=== PATIENT | female | born 1935 | race Caucasian/White ===

== ENCOUNTER 2022-04-07 20:02 | Inpatient (IN) | payer MEDICARE, SELFPAY ==
[2022-04-07] VITALS (16 sets, daily range): BP systolic 124–160; BP diastolic 56–68; PULSE 70–87; RESP 15–20; TEMP 36.4; O2SAT 95–98
--- NOTE | ~2022-04-07 | XR_ITS ---
EXAMINATION: XR chest 1V DATE: 04/07/2022 21:52 INDICATION: Recent pneumonia presenting with 2 days of new onset shortness of breath TECHNIQUE: frontal view of the chest was obtained. COMPARISON: None FINDINGS: Mild opacities at the bilateral lower lung zones. Blunting at the costophrenic angles consistent with small bilateral pleural effusions. No pneumothorax. The cardiomediastinal silhouette is within sam l limits for AP technique. Dual lead pacemaker seen with leads projecting over the expected locations of the right atrium and right ventricle. Tiny circular metallic density likely breast biopsy marker clip projecting over the left breast. IMPRESSION: 1. Opacities in bilateral lower lung zones consistent with small bilateral pleural effusions with ass ociated atelectasis or pneumonia. Reviewed, dictated and finalized at location A. IMPRESSION: 1. Opacities in bilateral lower lung zones consistent with small bilateral pleu ral effusions with associated atelectasis or pneumonia.
--- NOTE | ~2022-04-07 | NM_ITS ---
EXAMINATION: NM ritika stress w perfusion DATE: 04/10/2022 12:58 INDICATION: Chest pain. TECHNIQUE: Rest images were obtained following intravenous administration of 9.0 mCi Tc99m tetrofosmi n (Myoview). The patient was infused intravenously with Lexiscan (regadenoson). Then, 29.4 mCi Tc99m tetrofosmin (Myoview) was administered intravenously, and stress images were obtained. Data was recon structed into short axis and horizontal and vertical long axis SPECT images. Gated SPECT images were also obtained. COMPARISON: None. FINDINGS: There is a small, mild, fixed perfusion defect involving apical to mid inferior wall of lef t ventricle, consistent with infarct. No reversible component to suggest ischemia. There is no segme ntal wall motion abnormality. Left ventricular ejection fraction measures >70%. IMPRESSION: 1. Small area of mild infarct involving apical to mid inferior wall of left ventricle. Increased acti vity below the diaphragm decreases sensitivity and specificity in the inferior wall. 2. Normal left ventricular ejection fraction measuring > 70%. Reviewed, dictated and finalized at location B. IMPRESSION: 1. Small area of mild infarct involving apical to mid inferior wall of left chidi tricle. Increased activity below the diaphragm decreases sensitivity and specif icity in the inferior wall. 2. Normal left ventricular ejection fraction measuring > 70%.
--- NOTE | 2022-04-07 20:27 | ED.SOB ---
HPI - SOB/Dyspnea General Chief Complaint: Shortness of Breath/Dyspnea Stated Complaint: sob x 2 days Time Seen by Provider: 04/07/22 20:14 History of Present Illness HPI Narrative: Patient is an 86-year-old female with a history of rheumatoid arthritis, hypertension, hyperlipidemia, CAD, bradycardia status post pacemaker presenting with shortness of breath. Patient states that she had a pacemaker placed approximately 8 days ago in spring. She has since come to stay with her daughter. Today they were out on a walk when she developed chest heaviness and shortness of breath. They called the patient's tele-nurse who recommended they come to the ER. Patient was also recently treated for pneumonia. She finished her course of doxycycline yesterday morning. Currently, patient states that she feels fine. Denies recent fevers, headache, numbness or weakness, lightheadedness, palpitations, abdominal pain, nausea or vomiting, diarrhea, dysuria. Patient does report mild bilateral lower extremity swelling. Related Data Home Medications Medication Instructions Recorded Confirmed Adults Multivitamin 1 tab-cap PO DAILY 04/08/22 04/08/22 amlodipine 5 mg tablet 10 mg PO DAILY 04/08/22 04/08/22 aspirin 81 mg tablet,delayed 81 mg PO DAILY 04/08/22 04/08/22 release atorvastatin 20 mg tablet 20 mg PO HS 04/08/22 04/08/22 furosemide 20 mg tablet 20 mg PO DAILY 04/08/22 04/08/22 gabapentin 300 mg capsule 300 mg PO BID 04/08/22 04/08/22 Allergies Allergy/AdvReac Type Severity Reaction Status Date / Time acetaminophen [From Vicodin] Allergy Confusion Verified 04/07/22 23:43 celecoxib [From Celebrex] Allergy Swelling Verified 04/07/22 23:43 of Lip/Tongue/Throat hydrocodone [From Vicodin] Allergy Confusion Verified 04/07/22 23:43 Sulfa (Sulfonamide Allergy Rash Verified 04/07/22 23:43 Antibiotics) tramadol Allergy Confusion Verified 04/07/22 23:43 Review of Systems Review of Systems: All systems reviewed & are unremarkable except as noted in HPI and below PMFSH Past Medical History Medical History (Updated 04/08/22 @ 20:44 by Trang Desai MD) CAD (coronary artery disease) CHF (congestive heart failure) Essential hypertension Hyperlipidemia Peripheral neuropathy Rheumatoid arthritis Third degree heart block (~03/2022) TIA (transient ischemic attack) (~2006) Surgical History Surgical History (Updated 04/08/22 @ 07:48 by Dana Garibay DO) Artificial cardiac pacemaker (~03/2022) History of bilateral knee replacement History of exploratory laparotomy To evaluate causes for infertility with 3 mobilization of the patient's fallopian tubes History of tonsillectomy and adenoidectomy S/P trigger finger release Multiple fingers on bilateral hands Status post cataract extraction of both eyes with insertion of intraocular lens Status post open reduction with internal fixation of fracture Left hip fracture Family History Family History (Updated 04/08/22 @ 06:14 by Prema Morrison RN) Mother Parkinson disease Congestive heart failure Breast cancer Father Hypertension Sibling Arthritis Social History Social History (Updated 04/08/22 @ 07:44 by Dana Garibay DO) Social History: She has been twice her 2nd in 2013. She lives in an independent living facility in [facility]. She smoked socially for about 15 years but quit smoking around age 39. She denies any significant alcohol or illicit substance use. She was mostly a homemaker. She has 1 biological daughter who is still living. Her adopted daughter at age 48. Code status: Full code Surrogate decision maker: Daughter Smoking status: Never smoker Alcohol intake: never Substance use: never Spiritual care concerns: No Exam Narrative: GENERAL: Well-appearing, well-nourished, and in no acute distress. HEAD: Normocephalic, atraumatic. EYES: PERRLA and EOMI. ENT: Nares clear, no rhino
--- NOTE | 2022-04-07 20:47 | ECG_ITS ---
Measurements Intervals [place] Rate: 71 P: NV: 0 QRS: -79 QRSD: 159 T: 63 QT: 429 QTc: 469 Interpretive Statements ELECTRONIC VENTRICULAR PACEMAKER NO FURTHER INTERPRETATION POSSIBLE NO PREVIOUS ECG AVAILABLE FOR COMPARISON Electronically Signed On 04-08-2022 15:39:43 CDT by Dileep Li M.D.
[2022-04-07 21:08] LABS: Basophils Absolute Auto 0.1 K/mm3 (0.0-0.1); Basophils Percent Auto 0.7 % (0.2-1.2); Eosinophils Absolute Auto 0.2 K/mm3 (0-0.3); Eosinophils Percent Auto 2.4 % (0-4.4); Hematocrit 37.6 % (37.0-47.0); Hemoglobin 12.2 g/dL (12.0-15.0); Immature Granulocyte Absolute 0.03 K/mm3 (0.00-0.031); Immature Granulocyte Percent A 0.4 % (0-0.5); Lymphocytes Absolute Auto 1.97 K/mm3 (0.9-3.2); Mean Corpuscular HGB Conc 32.4 g/dl (32-36); Mean Corpuscular Hemoglobin 29.3 pg (26-34); Mean Corpuscular Volume 90.2 fl (80-100); Mean Platelet Volume 9.1 fl (7.4-10.4); Monocytes Percent Auto 12.7 % (2.6-8.5); Neutrophils Absolute Auto 4.4 K/mm3 (1.3-6.7); Neutrophils Percent Auto 57.8 % (45.5-73.1); Platelet Count Result 220 k/mm3 (150-375); Red Blood Count 4.17 M/mm3 (4.2-5.4); Red Cell Distribution Width 13.7 % (11.5-14.5); White Blood Count 7.6 K/mm3 (4.5-10.0)
[2022-04-07 21:18] LABS: INR 1.1; Partial Thromboplastin Time 32.3 SECONDS (22.3-36.8); Prothrombin Time 13.7 Seconds (11.1-14.7)
[2022-04-07 21:19] LABS: Alanine Aminotransferase 33 U/L (6-35); Albumin Level 4.2 g/dL (3.5-5.1); Alkaline Phosphatase 92 U/L (38-126); Anion Gap 8 mmol/L (8-16); Aspartate Amino Transferase 52 U/L (14-36); Bilirubin,Total 0.4 mg/dL (0.2-1.3); Blood Urea Nitrogen 29 mg/dL (7-17); Calcium 8.9 mg/dL (8.4-10.2); Carbon Dioxide 29 mmol/L (22-30); Chloride 100 mmol/L (98-107); Estimated CRCL calculation 44 ml/min; Estimated Glomerular Filt Rate > 60; Glucose 112 mg/dL (65-110); Potassium 4.1 mmol/L (3.4-5.0); Sodium 137 mmol/L (137-145)
[2022-04-07 21:31] LABS: NT Pro B Type Natriuretic Pept 1640 pg/mL (5-100); Troponin I 0.022 ng/mL (0.000-0.034)
[2022-04-07 22:20] LABS: Add Urine Microscopic? YES; Appearance Urine Cloudy (Clear); Bilirubin Urine Negative (Negative); Blood Urine 1+ (Negative); Color Urine Yellow (Yellow); Glucose Urine UA Negative (Negative); Ketones Urine Negative (Negative); Leukocyte Esterase Ur Trace LEU/UL (Negative); Nitrate Urine Negative (Negative); Protein Urine Negative (Negative); Specific Grav Ur 1.018 (1.001-1.035); Squamous Epithelial Cell Urine Few /hpf (Few); Urobilinogen Urine Negative mg/dL (<2.0)
[2022-04-07] MEDS: FUROSEMIDE INJ 40 MG/4 ML VIAL 20 MG IV PUSH (22:59)
[2022-04-07] MEDS: CEPHALEXIN 500 MG CAPSULE PO (23:00)
[2022-04-08] VITALS (11 sets, daily range): BP systolic 134–149; BP diastolic 50–56; PULSE 67–81; RESP 19–20; TEMP 36.1–36.6; O2SAT 93–96; BMI 25.7
[2022-04-08 00:36] LABS: Troponin I 0.023 ng/mL (0.000-0.034)
[2022-04-08 00:52] LABS: Troponin I 0.026 ng/mL (0.000-0.034)
--- NOTE | 2022-04-08 01:08 | ADMGEN ---
This patient, Abimbola Blankenship, was admitted to [facility] Surg Room 316-01. Patient/family oriented to hospital policies and general routines including ID bracelet, bed and alarms, visiting hours, pain management, procedures, bathroom and other care routines, personal items, smoking policy, room service/diet, and visiting hours. Information on how to activate the Rapid Response Team has been discussed. Patient/Family are encouraged to report perceived risks to care and to ask questions if they do not understand what they are told or what they should do.
--- NOTE | 2022-04-08 01:22 | PM.IMHP ---
H&P: HPI History of Present Illness Date/Time: 04/08/22 01:22 Chief Complaint: Shortness of breath and chest tightness Narrative: 86-year-old female with past medical history of CHF and recent pacemaker placement due to third-degree heart block who presented to the ER from her daughter's home due to shortness of breath and chest tightness with exertion. The patient was hospitalized about a week ago for third-degree heart block at [facility]. She had a pacemaker placed. The patient reports she was treated for pneumonia, UTI, lower extremity edema as well. She lives in independent living in [facility]. Her daughter brought her down here so that she could have assistance trying to get out of bed since she was only able to use 1 arm. She has her left arm in a sling due to pacemaker placement. She reports that she was feeling well and was able to walk fiber 6 blocks. She reports that he knows still a bit increased shortness of breath day before yesterday but then yesterday when she presented to the ER she was only able to walk about a 3rd of what she had been able to walk the previous days. In fact she felt so short of breath that her daughter's had to go get the car to drive her back to the home after 1 block. She reported that she does feel more short of breath and she had a central heaviness over chest. She has not been weighing herself. She denies any fevers or chills. She has been having some lower extremity swelling. She reports that the swelling in her feet is chronic and she relates it to her idiopathic neuropathy. She has chronic joint pain from rheumatoid arthritis. She denies any palpitations. She ambulates with a walker. She has had increased urinary frequency since she was started on Lasix during her last hospitalization. Review of Systems Review of Systems: 12 systems were reviewed with pertinent positives and negatives per HPI. Except as documented in the HPI, all other systems were reviewed and are negative. [facility] Past Medical History Medical History (Updated 04/08/22 @ 07:54 by Dana Garibay DO) CHF (congestive heart failure) Essential hypertension Hyperlipidemia Peripheral neuropathy Rheumatoid arthritis Third degree heart block (~03/2022) TIA (transient ischemic attack) (~2006) Surgical History Surgical History (Updated 04/08/22 @ 07:48 by Dana J. Hopen, DO) Artificial cardiac pacemaker (~03/2022) History of bilateral knee replacement History of exploratory laparotomy To evaluate causes for infertility with 3 mobilization of the patient's fallopian tubes History of tonsillectomy and adenoidectomy S/P trigger finger release Multiple fingers on bilateral hands Status post cataract extraction of both eyes with insertion of intraocular lens Status post open reduction with internal fixation of fracture Left hip fracture Family History Family History (Updated 04/08/22 @ 06:14 by Prema Morrison RN) Mother Parkinson disease Congestive heart failure Breast cancer Father Hypertension Sibling Arthritis Social History Social History (Updated 04/08/22 @ 07:44 by Dana Garibay DO) Social History: She has been twice her 2nd in 2013. She lives in an independent living facility in [facility]. She smoked socially for about 15 years but quit smoking around age 39. She denies any significant alcohol or illicit substance use. She was mostly a homemaker. She has 1 biological daughter who is still living. Her adopted daughter at age 48. Code status: Full code Surrogate decision maker: Daughter Smoking status: Never smoker Alcohol intake: never Substance use: never Spiritual care concerns: No Meds Home Medications and Allergies Home Medications Medication Instructions Recorded Confirmed Type Adults Multivitamin 1 tab-cap PO DAILY 04/08/22 04/08/22 History amlodipine 5 mg tablet 10 mg PO KEO
[2022-04-08 03:53] LABS: Troponin I 0.027 ng/mL (0.000-0.034)
[2022-04-08 07:59] LABS: Anion Gap 7 mmol/L (8-16); Blood Urea Nitrogen 23 mg/dL (7-17); Calcium 8.6 mg/dL (8.4-10.2); Carbon Dioxide 30 mmol/L (22-30); Chloride 101 mmol/L (98-107); Estimated CRCL calculation 49 ml/min; Estimated Glomerular Filt Rate > 60; Glucose 91 mg/dL (65-110); Potassium 3.4 mmol/L (3.4-5.0); Sodium 138 mmol/L (137-145)
[2022-04-08] MEDS: MULTIVITAMINS THERAPEUTIC TAB (*BKC) 1 TABLET PO (08:08)
[2022-04-08] MEDS: GABAPENTIN 300 MG CAPSULE PO ×2 (08:08→21:12)
[2022-04-08] MEDS: amLODIPine BESYLATE 5 MG TABLET 10 MG PO (08:08)
[2022-04-08] MEDS: ASPIRIN 81 MG ENTERIC TABLET PO (08:08)
[2022-04-08] MEDS: FUROSEMIDE INJ 40 MG/4 ML VIAL IV PUSH ×2 (08:09→21:12)
--- NOTE | 2022-04-08 14:30 | PM.IMPN ---
Progress Note: A&P Assessment and Plan (1) CHF exacerbation: Qualifiers: Heart failure type: unspecified Qualified Code(s): I50.9 - Heart failure, unspecified Code(s): I50.9 - Heart failure, unspecified Status: Acute Assessment and Plan: Patient presents with increasing SOB, leg edema and chest heaviness. CXR showing bilateral pleural effusions and possibly atelectasis. BNF 1640. Patient with acute on chronic CHF, probably diastolic. Echo 03/29/22 showing EF 76% with normal diastolic function. Patient received Lasix in the ER and continued on Lasix 40mg IV Q12h. Symptomatically better. Walking in the halls. Continue strict I&O's and daily weights. CHF teaching. Continue diuresis today and probably change to oral tomorrow. (2) Chest pain: Code(s): R07.9 - Chest pain, unspecified Status: Acute Assessment and Plan: Patient has known CAD with 50% LAD stenosis per family. She has developed CHB requiring PM placement and now with chest heaviness and CHF exacerbation. Consider underlying ischemia as etiology of her recurrent symptoms. Troponin normal x 4. EKG unhelpful with paced rhythm. Cards consult. Continue ASA and Lipitor. (3) CAD (coronary artery disease): Code(s): I25.10 - Atherosclerotic heart disease of [place] coronary artery without angina pectoris Status: Acute Assessment and Plan: As above (4) Abnormal urinalysis: Code(s): R82.90 - Unspecified abnormal findings in urine Status: Acute Assessment and Plan: UA noted. The patient is not having any urinary symptoms beyond increased frequency associated with Lasix. The patient was started on Keflex in the ER but stopped by admitting provider. Will monitor urine culture but continue to hold abx. (5) Rheumatoid arthritis: Code(s): M06.9 - Rheumatoid arthritis, unspecified Status: Acute Assessment and Plan: RF negative RA. She was on Embrel at the prior hospitalization. Will re-verify home meds. (6) Essential hypertension: Code(s): I10 - Essential (primary) hypertension Status: Acute Assessment and Plan: Patient's blood pressure was reviewed on 04/08 Blood pressure has mildly elevated on admission but has been well controlled since. Will continue current medications. (7) Third degree heart block: Onset Date: ~03/2022 Code(s): I44.2 - Atrioventricular block, complete Status: Acute Assessment and Plan: Patient presented to an outside hospital with fatigue and found to complete heart block. She underwent pacemaker placement on 03/30/2022. She had a [employer] Essentio dual chamber PM DDD pacing with lower rate set at 70 and upper rate of 120. She tolerated the procedure well. Cardiology consulted. Will interrogate pacemaker. Plan DVT prophylaxis - SCDs Subjective Date/time seen: 04/08/22 14:30 Interval history: 86yo female with RA, CAD, HTN, CHF and recent CHB s/p PM placement 03/30/22 here for SOB and CP. Patient was recently in [facility] for CHB s/p PM placement, UTI and PNA. She was discharged with Lasix 20mg daily and has been compliant with this. She is in this area recuperating with family. She began to have increasing SOB, increasing leg edema and ultimately chest heaviness. She has a known 50% LAD (' maker') many years ago and there are plans for stress test next month. She feels beter today. No furthre chest pain. Good UOP with the Lasix. Exam Narrative: AF 97.6 134/56 73 20 96% RA Gen - NARD lying semi-recumbent in bed Chest - decreased BS with few faint crackles in the bases. nml RR. Left upper chest incision is well approximated without erythema or drainage CV - RRR with frequent extra beats. Tele showing mostly paced rhythm Abd - Soft, NT/ND, Positive BS Ext - trace-1+ pedal edema Neuro - Alert and oriented. Nonfocal exam. [place] [employer]. Psych - Nml mood and
[2022-04-08] MEDS: ATORVASTATIN 20 MG TABLET PO (21:12)
[2022-04-09] VITALS (9 sets, daily range): BP systolic 133–145; BP diastolic 55–65; PULSE 71–80; RESP 17–24; TEMP 36.1–36.9; O2SAT 94–97
--- NOTE | 2022-04-09 | ECHO_ITS ---
Patient Info Name: Abimbola Blankenship Age: 86 years : 1935 Gender: Female Ht: 68 in Wt: 158 lbs BSA: 1.86 m2 HR: 82 bpm BP: 133 / 85 mmHg Heart Rhythm: Sinus Rhythm Exam Date: 04/09/2022 11:44 AM Exam Location: [facility] Pulmonary Patient Status: Inpatient Admit Date: 04/09/2022 Staff Ordering Physician: Mor Hoffman MD Spring Inspector: Emiliano Beyer, QUEENIE, RT Attending Provider: Dana Garibay DO Referring Physician: Yasmin FAROOQ; Exam Type: CA echo doppler color flow Study Info Indications R06.02 - Shortness of breath Complete two-dimensional, color flow and Doppler transthoracic echocardiogram is performed. Strain analysis performed. Summary 1. Complete two-dimensional, color flow and Doppler transthoracic echocardiogram is performed. 2. Left ventricular chamber dimension is normal. 3. Left ventricular systolic function is normal, estimated at 55-60%. 4. Right ventricular chamber dimension is normal. 5. Linear artifact in right ventricle suggestive of catheter(s), pacemaker lead(s), or ICD lead(s). 6. Left atrial chamber dimension is moderately enlarged. 7. There is mild aortic valve sclerosis. 8. There is trace mitral valve regurgitation. Left Ventricle Left ventricular chamber dimension is normal. Left ventricular systolic function is normal, estimated at 55-60%. The left ventricular diastolic function is grade I diastolic dysfunction. Right Ventricle Right ventricular chamber dimension is normal. Linear artifact in right ventricle suggestive of catheter(s), pacemaker lead(s), or ICD lead(s). Left Atria Left atrial chamber dimension is moderately enlarged. Right Atria Right atrial chamber dimension is normal. Aortic Valve The aortic valve is trileaflet. There is mild aortic valve sclerosis. Pulmonic Valve The pulmonic valve is normal. Mitral Valve The mitral valve has normal leaflets. There is trace mitral valve regurgitation. The mitral valve annulus is moderately calcified. Tricuspid Valve The tricuspid valve leaflets are normal. There is mild tricuspid valve regurgitation. Pericardium/Pleural The pericardium appears normal. Aorta The aortic root size at the sinus of Valsalva is normal. Left Ventricular Outflow Tract Name Value Normal LVOT 2D LVOT Diameter 2.0 cm LVOT Doppler LVOT Peak Gradient 2 mmHg LVOT Mean Gradient 1 mmHg LVOT VTI 13 cm LVOT VTI/AV VTI Ratio 0.7 LVOT Stroke Volume 39 ml LVOT CO 2.7 l/min LVOT CI 1.5 l/min/m2 Tricuspid Valve Name Value Normal TV Regurgitation Doppler TR Peak Velocity 305 cm/s TR Peak Gradient 37 mmHg
[2022-04-09 06:58] LABS: Alanine Aminotransferase 28 U/L (6-35); Albumin Level 3.9 g/dL (3.5-5.1); Alkaline Phosphatase 78 U/L (38-126); Anion Gap 11 mmol/L (8-16); Aspartate Amino Transferase 41 U/L (14-36); Bilirubin,Total 0.6 mg/dL (0.2-1.3); Blood Urea Nitrogen 22 mg/dL (7-17); Calcium 8.4 mg/dL (8.4-10.2); Carbon Dioxide 32 mmol/L (22-30); Chloride 96 mmol/L (98-107); Estimated CRCL calculation 39 ml/min; Estimated Glomerular Filt Rate 59; Glucose 92 mg/dL (65-110); Potassium 3.2 mmol/L (3.4-5.0); Sodium 139 mmol/L (137-145)
[2022-04-09] MEDS: POTASSIUM CHLORIDE 20 MEQ TABLET 40 MEQ PO (08:58)
[2022-04-09] MEDS: GABAPENTIN 300 MG CAPSULE PO ×2 (08:58→21:44)
[2022-04-09] MEDS: FUROSEMIDE INJ 40 MG/4 ML VIAL IV PUSH (08:58)
[2022-04-09] MEDS: MULTIVITAMINS THERAPEUTIC TAB (*BKC) 1 TABLET PO (08:58)
[2022-04-09] MEDS: ASPIRIN 81 MG ENTERIC TABLET PO (08:58)
[2022-04-09] MEDS: amLODIPine BESYLATE 5 MG TABLET 10 MG PO (08:58)
--- NOTE | 2022-04-09 09:11 | PM.CNCAR ---
Assessment and Plan Assessment and plan (1) Cardiac pacemaker in situ: Code(s): Z95.0 - Presence of cardiac pacemaker Status: Acute Assessment and Plan: Pacemaker site appears to be and dry and intact. Will have device check performed here in the hospital (2) Essential hypertension: Code(s): I10 - Essential (primary) hypertension Status: Acute (3) CAD (coronary artery disease): Code(s): I25.10 - Atherosclerotic heart disease of [place] coronary artery without angina pectoris Status: Acute Assessment and Plan: Nonobstructive disease noted in 2016. Recent episode of chest pain could be anginal or simply related volume overload (4) Chest pain: Code(s): R07.9 - Chest pain, unspecified Status: Acute Assessment and Plan: Troponins are negative but will keep NPO after midnight for Lexiscan myocardial perfusion study tomorrow. (5) CHF exacerbation: Code(s): I50.9 - Heart failure, unspecified Status: Acute Assessment and Plan: Probably acute and diastolic in etiology. Will check a 2D echocardiogram with Doppler especially given recent pacemaker implantation. Will discontinue her IV Lasix at this point start her on oral furosemide 40 mg p.o. daily. KCL 40 mEq p.o. x1 History of Present Illness History of Present Illness Consult date/time: 04/09/22 09:11 Requesting physician: Uche Sam MD Consult reason: congestive heart failure Reason For Visit: CHF Narrative: Date of service 04/09/2022 Reason consultation: CHF, recent pacemaker Requesting physician: Dr. Sam History: Patient is an 86-year-old female who does see cardiology in [place] as her cardiac care performed by Dr. Ventura. She did have a cardiac catheterization 5 or 6 years ago and was told she had a 50-60% stenosis in ?the maker ?. She has been treated medically. She was noted to have an elevated heart rate as well as a low heart rate for her intermittently noted earlier this month. This resulted in follow-up with Dr. Ventura. Echocardiogram was performed as well as a monitor worn. Due to some bradycardia and what was noted to be complete heart block, she was admitted to the hospital in [place] and underwent a permanent pacemaker implantation on 03/30/2022. She was discharged on 04/01/2022. She has been recently staying with her daughter as her pacemaker site heals and due to standard post ppm limitations. She had been feeling okay up until 3 days ago. She did have some orthopnea on April 05. That on April 06, she was doing her typical walk and felt very short of breath and and experienced some chest heaviness. This was of relatively sudden onset. She walks less than half a block and had to stop. Chest pain was located in the anterior aspect her chest and did not radiate. Her symptoms improved with rest. She came to the hospital where she was started on IV Lasix. Her symptoms have improved in her lower extremity edema has also gotten better. She had been noticing some increased lower extremity swelling recently also. She denies any paroxysmal nocturnal dyspnea, syncope, presyncope, palpitations. Review of Systems Review of Systems: All systems reviewed & are unremarkable except as noted in HPI and below Constitutional: Constitutional: Denies body ache(s) Eyes: Eyes: Denies blurry vision ENT: Comments: Hard of hearing Cardiovascular: Cardiovascular: Reports chest pain and Reports leg edema Respiratory: Respiratory: Reports dyspnea Gastrointestinal: Gastrointestinal: Denies abdominal pain Genitourinary: Genitourinary: Denies hematuria Musculoskeletal: Musculoskeletal: Denies back pain Integumentary/Breasts: Skin/Breast: Denies dry skin Neurologic: Denies headache(s) Psychiatric: Psychiatric: Denies anxiety and Denies behavioral changes Endocrine: Endocrine: Denies excessive sweating Hematologic/Lymphatic: Hematologic/Ly
--- NOTE | 2022-04-09 13:52 | PM.IMPN ---
Progress Note: A&P Assessment and Plan (1) CHF exacerbation: Code(s): I50.9 - Heart failure, unspecified Status: Acute Assessment and Plan: Patient presents with increasing SOB, leg edema and chest heaviness. CXR showing bilateral pleural effusions and possibly atelectasis. BNF 1640. Patient with acute on chronic diastolic CHF. Echo 03/29/22 showing EF 76% with normal diastolic function. Patient received Lasix in the ER and continued on Lasix 40mg IV Q12h. Symptomatically better. Changed to oral Lasix now. Sx resolved (2) Chest pain: Code(s): R07.9 - Chest pain, unspecified Status: Acute Assessment and Plan: Patient has known CAD with 50% LAD stenosis per family. She has developed CHB requiring PM placement and now with chest heaviness and CHF exacerbation. Chest pain could be related to CHF exacerbation but consider underlying ischemia as etiology of her recurrent symptoms. Troponin normal x 4. EKG unhelpful with paced rhythm. Cards consult. Continue ASA and Lipitor. Stress test planned. (3) Atrial fibrillation: Code(s): I48.91 - Unspecified atrial fibrillation Status: Acute Assessment and Plan: Informed by family that the patient has AFib. Need to verify with PM interrogation. Cards notfied. (4) CAD (coronary artery disease): Code(s): I25.10 - Atherosclerotic heart disease of [place] coronary artery without angina pectoris Status: Acute Assessment and Plan: As above (5) Rheumatoid arthritis: Code(s): M06.9 - Rheumatoid arthritis, unspecified Status: Acute Assessment and Plan: RF negative RA. She was on Embrel at the prior hospitalization. Will re-verify home meds. (6) Essential hypertension: Code(s): I10 - Essential (primary) hypertension Status: Acute Assessment and Plan: Patient's blood pressure was reviewed on 04/09 Blood pressure was mildly elevated on admission but has been well controlled since. Will continue current medications. (7) Third degree heart block: Onset Date: ~03/2022 Code(s): I44.2 - Atrioventricular block, complete Status: Acute Assessment and Plan: Patient presented to an outside hospital with fatigue and found to complete heart block. She underwent pacemaker placement on 03/30/2022. She had a [employer]ent[employer] dual chamber PM DDD pacing with lower rate set at 70 and upper rate of 120. She tolerated the procedure well. Cardiology following (8) Cardiac pacemaker in situ: Code(s): Z95.0 - Presence of cardiac pacemaker Status: Acute Assessment and Plan: As above (9) Abnormal urinalysis: Code(s): R82.90 - Unspecified abnormal findings in urine Status: Acute Assessment and Plan: UA noted. The patient is not having any urinary symptoms beyond increased frequency associated with Lasix. The patient was started on Keflex in the ER but stopped by admitting provider. UCx negative. UTI ruled out Plan DVT prophylaxis - SCDs Subjective Date/time seen: 04/09/22 13:52 Interval history: 86yo female with RA, CAD, HTN, CHF and recent CHB s/p PM placement 03/30/22 here for SOB and CP. Feels well today. No chest pain. Shortness of breath is much improved. She is able to take a deeper breath. No nausea or vomiting. patient spoke with grape cutter from [place] stated that patient is having atrial fibrillation. Daughter relays this information that grape cutter recommended Malka. Exam Narrative: AF 97.3 133/55 72 18 95% RA Gen - NARD lying semi-recumbent in bed Chest - Decreased breath sounds in right base with a few left basilar crackles otherwise clear. Normal respiratory rate. CV - RRR with occasional extra beats. Tele showing mostly paced rhythm with PVCs Abd - Soft, NT/ND, Positive BS Ext - no pedal edema Psych - Nml mood and affect Skin - Warm and dry Ob
[2022-04-09] MEDS: DOCUSATE SODIUM 100 MG CAPSULE PO (18:33)
[2022-04-09] MEDS: ATORVASTATIN 20 MG TABLET PO (21:44)
[2022-04-10] VITALS (7 sets, daily range): BP systolic 131–137; BP diastolic 56–60; PULSE 74–96; RESP 16–18; TEMP 36.3–36.6; O2SAT 94–98
[2022-04-10 06:34] LABS: Anion Gap 6 mmol/L (8-16); Blood Urea Nitrogen 22 mg/dL (7-17); Calcium 7.9 mg/dL (8.4-10.2); Carbon Dioxide 31 mmol/L (22-30); Chloride 101 mmol/L (98-107); Estimated CRCL calculation 49 ml/min; Estimated Glomerular Filt Rate > 60; Glucose 87 mg/dL (65-110); Magnesium 2.2 mg/dL (1.6-2.3); Potassium 3.6 mmol/L (3.4-5.0); Sodium 138 mmol/L (137-145)
--- NOTE | 2022-04-10 09:12 | EST_ITS ---
Patient Info Name: Abimbola Blankenship Age: 86 years : 1935 Gender: Female Ht: 68 in Wt: 158 lbs BSA: 1.86 m2 Exam Date: 04/10/2022 11:59 AM Exam Location: [facility] Stress Patient Status: Inpatient Admit Date: 04/09/2022 Staff Ordering Physician: Mor Hoffman MD Attending Provider: Dana Garibay DO Exercise Technologist: Frieda Blanco RDCS Exercise Physician: Yani Ortiz NP Exam Type: CA stress ritika w NM Study Info Indications R07.9 - Chest pain, unspecified A regadenoson stress test was performed. Summary 1. Please correlate with nuclear medicine images, reported separately. 2. No abnormal ST/T wave changes with exercise. 3. Non-diagnostic ECG due to electronic pacing. Protocol: Lexiscan Stress ECG Details Stage: REST Duration (min): 2 min : 22 sec HR (bpm): 98 SBP (mmHg): 165 DBP (mmHg): 69 Stage: REST Duration (min): 5 min : 10 sec HR (bpm): 97 SBP (mmHg): 165 DBP (mmHg): 69 Stage: STAGE 1 Duration (min): 1 min : 0 sec HR (bpm): 112 SBP (mmHg): 165 DBP (mmHg): 69 Stage: RECOVERY Duration (min): 1 min : 0 sec HR (bpm): 110 SBP (mmHg): 156 DBP (mmHg): 57 Stage: RECOVERY Duration (min): 2 min : 0 sec HR (bpm): 110 SBP (mmHg): 156 DBP (mmHg): 57 Stage: RECOVERY Duration (min): 3 min : 0 sec HR (bpm): 99 SBP (mmHg): 147 DBP (mmHg): 57 Stage: RECOVERY Duration (min): 3 min : 11 sec HR (bpm): 102 SBP (mmHg): 147 DBP (mmHg): 57 Rest HR: 97 bpm Peak HR: 114 bpm Rest Sys BP: 165 mmHg Peak Sys BP: 156 mmHg Max Pred HR: 133 bpm % Max Pred HR: 86 % Target HR: 113 bpm Max RPP: 17,784 bpm*mmHg Target HR Summary: Hemodynamic response to exercise was normal BP Response: Normal blood pressure response Termination Reason: Completed protocol Cardiac Symptoms: None Total Time: 1 min : 0 sec Rest Wong BP: 69 mmHg Peak Wong BP: 57 mmHg Total Dose: 0.4 mg Resting ECG Normal sinus rhythm. Ventricular pacing. Stress ECG No abnormal ST/T wave changes with exercise. Non-diagnostic ECG due to electronic pacing. Arrhythmias None. Report Signatures
[2022-04-10] MEDS: ASPIRIN 81 MG ENTERIC TABLET PO (11:05)
[2022-04-10] MEDS: amLODIPine BESYLATE 5 MG TABLET 10 MG PO (11:05)
[2022-04-10] MEDS: MULTIVITAMINS THERAPEUTIC TAB (*BKC) 1 TABLET PO (11:06)
[2022-04-10] MEDS: FUROSEMIDE 40 MG TABLET PO (11:06)
[2022-04-10] MEDS: GABAPENTIN 300 MG CAPSULE PO (11:06)
--- NOTE | 2022-04-10 12:13 | PM.PNCARD ---
Progress Note: A&P Assessment and Plan (1) Cardiac pacemaker in situ: Code(s): Z95.0 - Presence of cardiac pacemaker Status: Acute Assessment and Plan: Pacemaker site appears to be and dry and intact. Contacted [employer] for pacemaker interrogation. (2) Essential hypertension: Code(s): I10 - Essential (primary) hypertension Status: Acute Assessment and Plan: At goal. (3) CAD (coronary artery disease): Code(s): I25.10 - Atherosclerotic heart disease of [place] coronary artery without angina pectoris Status: Acute Assessment and Plan: Nonobstructive disease noted in 2016. Recent episode of chest pain could be anginal or simply related volume overload. No ischemia noted on lexiscan performed today. Continue ASA, statin. (4) Chest pain: Code(s): R07.9 - Chest pain, unspecified Status: Acute Assessment and Plan: Underwent lexiscan today - did not show any reversible ischemia. EF 70%. (5) CHF exacerbation: Code(s): I50.9 - Heart failure, unspecified Status: Acute Assessment and Plan: Acute diastolic heart failure. Echo yesterday showed normal LVSF, EF 55-60%. Grade I diastolic dysfunction. Improved with diuresis. Continue p.o. furosemide. Can optimize medical therapy for HFpEF with Jardiance, spironolactone. Plan Per patient's daughter, Afib noted on device check done by EP at [facility]. Called Dr. Banks to discuss. Confirms that this is corect and states she sent in script for Xarelto as Eliquis was too expensive. She has follow up with Dr. Banks with a device check on of this week. Subjective Date/time seen: 04/10/22 12:13 Cardiology follow up for CHF, chest pain Feeling better today. States she was able to walk a couple of laps around the floor without any significant shortness of breath. No chest pain. Review of Systems Review of Systems: All systems reviewed & are unremarkable except as noted in HPI and below Constitutional: Constitutional: Denies body ache(s), Denies excessive sweating and Denies headache(s) Eyes: Eyes: Denies blurry vision ENT: Denies headache(s) and Denies lip swelling Cardiovascular: Cardiovascular: Reports chest pain, Reports leg edema and Reports dyspnea Respiratory: Respiratory: Reports dyspnea Gastrointestinal: Gastrointestinal: Denies abdominal pain Genitourinary: Genitourinary: Denies hematuria Musculoskeletal: Musculoskeletal: Denies back pain Integumentary/Breasts: Skin/Breast: Denies dry skin Neurologic: Denies behavioral changes and Denies headache(s) Psychiatric: Psychiatric: Denies anxiety and Denies behavioral changes Endocrine: Endocrine: Denies excessive sweating Hematologic/Lymphatic: Hematologic/Lymphatic: Denies easy bleeding Allergic/Immunologic: Allergic/Immunologic: Denies GI upset with certain foods and Denies lip swelling Exam Narrative: Awake alert and oriented pleasant and appropriate and appears stated age Const: General: comfortable and no acute distress HENMT: Face/Nose/Sinus: Normal nares present Mouth: Yes moist mucous membranes Eyes: General: appearance normal, both eyes and all related structures Sclera: sclerae normal Neck: Neck: supple Carotids: no bruits Chest: Other: No reproducible chest wall pain to palpation. Pacemaker site clean dry and intact in the left upper chest. Resp: Effort & Inspection: normal respiratory effort Auscultation: crackles Other: Basilar crackles are heard Cardio: Rate: regular rate Rhythm: regular rhythm (paced rhythm) Heart sounds: no murmurs GI: Inspection: non-distended Auscultation: normal bowel sounds Skin: General skin exam: normal color and no rashes or lesions noted Neuro: Speech: normal speech Motor exam (neuro): 5/5 motor strength present throughout Sensory Exam: normal sensation Extrem: General: edema (Trivial bilateral lower extremity
--- NOTE | 2022-04-10 16:21 | PM.DS ---
DS: Admitting Diagnosis Discharge Date 04/10/22 Admitting Diagnosis Shortness of breath DS: Discharge Diagnosis Discharge Diagnosis (1) CHF exacerbation: Code(s): I50.9 - Heart failure, unspecified Status: Acute (2) Chest pain: Code(s): R07.9 - Chest pain, unspecified Status: Acute (3) Atrial fibrillation: Code(s): I48.91 - Unspecified atrial fibrillation Status: Acute (4) CAD (coronary artery disease): Code(s): I25.10 - Atherosclerotic heart disease of [place] coronary artery without angina pectoris Status: Acute (5) Rheumatoid arthritis: Code(s): M06.9 - Rheumatoid arthritis, unspecified Status: Acute (6) Essential hypertension: Code(s): I10 - Essential (primary) hypertension Status: Acute (7) Third degree heart block: Onset Date: ~03/2022 Code(s): I44.2 - Atrioventricular block, complete Status: Acute (8) Cardiac pacemaker in situ: Code(s): Z95.0 - Presence of cardiac pacemaker Status: Acute (9) Abnormal urinalysis: Code(s): R82.90 - Unspecified abnormal findings in urine Status: Acute DS: Summary Hospital Course Reason for hospitalization: 86yo female with RA, CAD, HTN, CHF and recent CHB s/p PM placement 03/30/22 here for SOB and CP. Please see H&P for details Hospital Course: Patient presents with increasing SOB, leg edema and chest heaviness. CXR showing bilateral pleural effusions and possibly atelectasis. BNF 1640. Patient with acute on chronic diastolic CHF. Echo here showing EF 55-60% with Grade I diastolic dysfunction. Patient received Lasix in the ER and continued on Lasix 40mg IV Q12h. Symptomatically better. Changed to oral Lasix.? Sx resolved. Patient has known CAD with 50% LAD stenosis per family. She has developed CHB requiring PM placement and now with chest heaviness and CHF exacerbation. Troponin normal x 4. EKG unhelpful with paced rhythm. Cardiology consulted. We continued ASA and Lipitor. Lexiscan stress test performed showing no abnormal ST/T wave changes. Nuclear images showing small area of mild fixed perfusion defect involving apical to mid inferior LV wall with EF >70%. PM interrogated. Called by the patient's [employer] Operator and patient was told she had new AFib. Nadeen called in by her doctor. She overall did well. She was up ambulating to the bathroom and into the halls with walker without assistance. She was able to be discharged home on 04/10/22 Status at Discharge Cognitive/behavioral status at discharge: Stable Time Spent with Patient Time attestation: Total time spent providing and/or coordinating discharge services: 34 minutes Time spent: Greater than 30 minutes Exam Narrative: AF 97.3 137/56 83 16 98% RA Gen - NARD Chest - Few basilar faint rhonchi o/w clear CV - RRR with S1/S2 Abd - Soft, NT/ND, Positive BS Ext - trace pedal edema Psych - Nml mood and affect Skin - Warm and dry DS: Data Data Completed and Pending Labs on day of discharge: Labs from last 24 hours 04/10/22 05:54 Sodium 138 Potassium 3.6 Chloride 101 Carbon Dioxide 31 H Anion Gap 6 L BUN 22 H Creatinine 0.70 Estim Creat Clear Calc 49 Estimated GFR > 60 Glucose 87 Calcium 7.9 L Magnesium 2.2 Discharge Plan Discharge Attending physician on discharge: Uche Sam Consulting providers: Dileep Li Discharging Clinician: Uche Sam Anticipated Discharge Date/Time: 04/10/22 16:29 Patient Disposition: Home, Self-Care Activity: as tolerated Diet: heart healthy Discharge Instructions: Take precautions to avoid falls. Rise slowly from a lying or sitting position. Pause before standing or walking. Check daily morning weights after voiding. Call your doctor if you gain more than 3 lb in 2 days or 5 lb in 1 week. Contact your doctor or call 911 and come to the Emergency Room if you have any type of tra
== END 2022-04-10 17:15 | disposition home or self-care (01) | DRG 291 ==
LOC: ANHED 23:20 → ANH3MEDSUR 23:38
PROVIDERS: Admitting Provider Internal Medicine; Emergency Provider Emergency Medicine; Visit Provider Internal Medicine
DX: I11.0 Hypertensive heart disease with heart failure (principal); I50.33 Acute on chronic diastolic (congestive) heart failure; I44.2 Atrioventricular block, complete; I48.91 Unspecified atrial fibrillation; I25.10 Atherosclerotic heart disease of native coronary artery without angina pectoris; R82.90 Unspecified abnormal findings in urine; E78.5 Hyperlipidemia, unspecified; G62.9 Polyneuropathy, unspecified; M06.9 Rheumatoid arthritis, unspecified; Z79.82 Long term (current) use of aspirin; Z79.899 Other long term (current) drug therapy; Z86.73 Personal history of transient ischemic attack (TIA), and cerebral infarction without residual deficits; Z87.891 Personal history of nicotine dependence; Z95.0 Presence of cardiac pacemaker; Z98.42 Cataract extraction status, left eye; Z98.41 Cataract extraction status, right eye; Z96.1 Presence of intraocular lens
CPT/HCPCS: 36415; 71045; 78452; 80048; 80053; 81001; 83735; 83880; 84484; 85025; 85610; 85730; 87086; 93005; 93017; 93306; 96374; 96376; 99285; A9270; A9502; G0378; J1940; J2785

== ENCOUNTER 2022-06-08 16:39 | Outpatient (CLI) | payer MEDICARE, SELFPAY ==
--- NOTE | ~2022-06-08 | XR_ITS ---
EXAMINATION: XR chest 2V DATE: 06/08/2022 17:43 INDICATION: Shortness of breath TECHNIQUE: PA and lateral views of the chest were obtained. COMPARISON: Chest radiograph dated 04/07/2022 FINDINGS: Opacities in the bilateral lower lung zones, right greater than left. Small bilateral pleural effusio ns, also right greater than left. No pulmonary edema or pneumothorax. Cardiomegaly. Dual lead pacemak er seen with leads projecting over the expected locations of the right atrium and right ventricle. Left breast biopsy marker. IMPRESSION: 1. Opacities in the bilateral lower lung zones, right greater than left consistent with small bilater al pleural effusions and associated atelectasis and/or pneumonia. 2. Cardiomegaly. Reviewed, dictated and finalized at location [facility] IMPRESSION: 1. Opacities in the bilateral lower lung zones, right greater than left consist ent with small bilateral pleural effusions and associated atelectasis and/or pn eumonia. 2. Cardiomegaly.
[2022-06-08 23:11] LABS: Anion Gap 12 mmol/L (8-16); Blood Urea Nitrogen 37 mg/dL (7-17); Calcium 9.6 mg/dL (8.4-10.2); Carbon Dioxide 31 mmol/L (22-30); Chloride 92 mmol/L (98-107); Estimated Glomerular Filt Rate 47; Glucose 97 mg/dL (65-110); Potassium 4.4 mmol/L (3.4-5.0); Sodium 135 mmol/L (137-145)
[2022-06-08 23:19] LABS: NT Pro B Type Natriuretic Pept 7580 pg/mL (5-100)
== END 2022-06-08 16:40 | disposition home or self-care (01) ==
DX: I50.30 Unspecified diastolic (congestive) heart failure (principal); R06.02 Shortness of breath; I51.7 Cardiomegaly; R91.8 Other nonspecific abnormal finding of lung field
CPT/HCPCS: 36415; 71046; 80048; 83735; 83880

== ENCOUNTER 2022-09-16 19:09 | Emergency (ER) | payer MEDICARE, SELFPAY ==
[2022-09-16 19:31] VITALS: BP 127/71; PULSE 123; RESP 16; TEMP 37.1; O2SAT 99
--- NOTE | 2022-09-16 19:35 | ED.GENADULT ---
HPI - General Adult General Chief complaint: Urogenital-Female Stated complaint: URINARY URGENCY Source: patient, family and RN notes reviewed History of Present Illness HPI narrative: 87-year-old female presents to urgent care with daughter at side. Patient states she believes she has another UTI. Patient reports polyuria, urinary urgency, and mid lower pelvic pressure for the last 3 days. Patient states she just completed ciprofloxacin for a UTI 1 week ago. Patient states her symptoms were resolved for a few days but then returned. Patient denies any abdominal pain, fevers, chills, chest pain, or shortness of breath. Patient denies burning with urination. Patient is currently undergoing chemo and had last treatment approximately 1 week ago. Some parts of this dictation were generated by voice recognition software and may contain typographical and/or grammatical inaccuracies. Related Data Home Medications Medication Instructions Recorded Confirmed Adults Multivitamin 1 tab-cap PO DAILY 04/08/22 04/08/22 amlodipine 5 mg tablet 10 mg PO DAILY 04/08/22 04/08/22 aspirin 81 mg tablet,delayed 81 mg PO DAILY 04/08/22 04/08/22 release atorvastatin 20 mg tablet 20 mg PO HS 04/08/22 04/08/22 gabapentin 300 mg capsule 300 mg PO BID 04/08/22 04/08/22 Allergies Allergy/AdvReac Type Severity Reaction Status Date / Time acetaminophen [From Vicodin] Allergy Confusion Verified 09/16/22 19:26 celecoxib [From Celebrex] Allergy Swelling Verified 09/16/22 19:26 of Lip/Tongue/Throat hydrocodone [From Vicodin] Allergy Confusion Verified 09/16/22 19:26 Sulfa (Sulfonamide Allergy Rash Verified 09/16/22 19:26 Antibiotics) tramadol Allergy Confusion Verified 09/16/22 19:26 Review of Systems Review of Systems: CONSTITUTIONAL: Denies fever, chills, or sweats. EYES: Denies visual changes, redness, or discharge. ENT: Denies otalgia and sore throat CARDIOVASCULAR: Denies chest pain, palpitations, or edema. RESPIRATORY: Denies cough or dyspnea. GASTROINTESTINAL: Denies abdominal pain, nausea, vomiting, or diarrhea. GENITOURINARY: polyuria and urinary urgency and mid lower pelvic pressure SKIN: Denies rash or itching. MUSCULOSKELETAL: Denies back pain, joint pain, or myalgia. NEUROLOGIC: Denies headache, numbness, or weakness. Pertinent positives per HPI. ON LICENSE OF [facility] Past Medical History Medical History CAD (coronary artery disease) CHF (congestive heart failure) Essential hypertension Hyperlipidemia Peripheral neuropathy Rheumatoid arthritis Third degree heart block (~03/2022) TIA (transient ischemic attack) (~2006) Surgical History Surgical History Artificial cardiac pacemaker (~03/2022) History of bilateral knee replacement History of exploratory laparotomy To evaluate causes for infertility with 3 mobilization of the patient's fallopian tubes History of tonsillectomy and adenoidectomy S/P trigger finger release Multiple fingers on bilateral hands Status post cataract extraction of both eyes with insertion of intraocular lens Status post open reduction with internal fixation of fracture Left hip fracture Family History Family History Mother Parkinson disease Congestive heart failure Breast cancer Father Hypertension Sibling Arthritis Social History Social History Social History: She has been twice her 2nd in 2013. She lives in an independent living facility in [facility]. She smoked socially for about 15 years but quit smoking around age 39. She denies any significant alcohol or illicit substance use. She was mostly a homemaker. She has 1 biological daughter who is still living. Her adopted daughter at age 48. Code status: Full code S
== END 2022-09-16 19:50 | disposition home or self-care (01) ==
PROVIDERS: Emergency Provider Nurse Practitioner Family; PCP Nurse Practitioner Family
DX: N39.0 Urinary tract infection, site not specified (principal); I25.10 Atherosclerotic heart disease of native coronary artery without angina pectoris; I11.0 Hypertensive heart disease with heart failure; I50.9 Heart failure, unspecified; E78.5 Hyperlipidemia, unspecified; Z86.73 Personal history of transient ischemic attack (TIA), and cerebral infarction without residual deficits
CPT/HCPCS: 81003; 87086; 87088; 99213; G0463

== ENCOUNTER 2022-11-28 14:25 | Outpatient (CLI) | payer MEDICARE, SELFPAY | END 2022-11-28 14:26 | disposition home or self-care (01) | LOC: ANHAUDIO 14:26 | PROVIDERS: PCP Nurse Practitioner Family | DX: H90.3 Sensorineural hearing loss, bilateral (principal) | CPT/HCPCS: 92557; 92567 ==

== ENCOUNTER 2023-01-03 11:00 | Outpatient (RCR) | payer MEDICARE, SELFPAY | END 2023-01-03 23:59 | disposition home or self-care (01) | LOC: ANHAUDIO 11:00 | PROVIDERS: PCP Nurse Practitioner Family; Visit Provider Nurse Practitioner Family | DX: Z46.1 Encounter for fitting and adjustment of hearing aid (principal) | CPT/HCPCS: 99199; V5261 ==

== ENCOUNTER 2023-03-06 18:15 | Emergency (ER) | payer MEDICARE, SELFPAY ==
[2023-03-06 18:27] VITALS: BP 140/70; PULSE 113; RESP 16; TEMP 37.1; O2SAT 98
--- NOTE | 2023-03-06 18:27 | ED.FEMALEGU ---
HPI - Female Genitourinary General Chief complaint: Urogenital-Female Stated complaint: UTI Time Seen by Provider: 03/06/23 18:27 Source: patient Mode of arrival: ambulatory Limitations: no limitations History of Present Illness HPI Narrative: 87-year-old female presents with complaint of urinary urgency, frequency, incontinence, lower abdominal cramping for the past 3 days. Patient reports history of multiple urinary tract infections over the past 8 months. Afebrile. Denies nausea vomiting diarrhea. No back pain. Patient last took an antibiotic in December for a urinary tract infection. Patient taking a low-dose antibiotic as a preventative for urinary tract infections. Called neurology office today and was not able to see her. All systems reviewed and negative except as noted above. Related Data Home Medications Medication Instructions Recorded Confirmed Adults Multivitamin 1 tab-cap PO DAILY 04/08/22 03/06/23 atorvastatin 20 mg tablet 20 mg PO HS 04/08/22 03/06/23 gabapentin 300 mg capsule 300 mg PO BID 04/08/22 03/06/23 acetaminophen 500 mg tablet 500 mg PO HS 09/16/22 03/06/23 (Acetaminophen Extra Strength) allopurinol 300 mg tablet 300 mg PO DAILY 09/16/22 03/06/23 apixaban 5 mg tablet (Eliquis) 5 mg PO BID 09/16/22 03/06/23 calcium carbonate 600 mg calcium 600 mg PO BID 09/16/22 03/06/23 (1,500 mg) tablet (Calcium) metoprolol succinate 25 mg 25 mg PO DAILY 09/16/22 03/06/23 tablet,extended release 24 hr potassium chloride 20 mEq 40 meq PO BID 09/16/22 03/06/23 tablet,extended release trimethoprim 100 mg tablet 100 mg PO DAILY 03/06/23 03/06/23 Allergies Allergy/AdvReac Type Severity Reaction Status Date / Time acetaminophen [From Vicodin] Allergy Confusion Verified 03/06/23 18:17 celecoxib [From Celebrex] Allergy Swelling Verified 03/06/23 18:17 of Lip/Tongue/Throat hydrocodone [From Vicodin] Allergy Confusion Verified 03/06/23 18:17 Sulfa (Sulfonamide Allergy Rash Verified 03/06/23 18:17 Antibiotics) tramadol Allergy Confusion Verified 03/06/23 18:17 Review of Systems Review of Systems: CONSTITUTIONAL: Denies fever, chills, or sweats. EYES: Denies visual changes, redness, or discharge. ENT: Denies rhinorrhea, congestion, sore throat, or otalgia. CARDIOVASCULAR: Denies chest pain, palpitations, or edema. RESPIRATORY: Denies cough or dyspnea. GASTROINTESTINAL: Denies abdominal pain, nausea, vomiting, or diarrhea. GENITOURINARY: Reports urgency, frequency, lower abdominal cramping. Denies dysuria, hematuria. SKIN: Denies rash or itching. MUSCULOSKELETAL: Denies back pain, joint pain, or myalgia. NEUROLOGIC: Denies headache, numbness, or weakness. PSYCHIATRIC: Denies anxiety or depression. All other systems reviewed are negative, except as documented in HPI. [facility] Past Medical History Medical History CAD (coronary artery disease) CHF (congestive heart failure) Essential hypertension Hyperlipidemia Peripheral neuropathy Rheumatoid arthritis Third degree heart block (~03/2022) TIA (transient ischemic attack) (~2006) Surgical History Surgical History Artificial cardiac pacemaker (~03/2022) History of bilateral knee replacement History of exploratory laparotomy To evaluate causes for infertility with 3 mobilization of the patient's fallopian tubes History of tonsillectomy and adenoidectomy S/P trigger finger release Multiple fingers on bilateral hands Status post cataract extraction of both eyes with insertion of intraocular lens Status post open reduction with internal fixation of fracture Left hip fracture Family History Family History Mother Parkinson disease Congestive heart failure Breast cancer Father Hypertension Sibling Arthritis Social History Social History (Reviewed
== END 2023-03-06 19:21 | disposition home or self-care (01) ==
PROVIDERS: Emergency Provider Nurse Practitioner Family; PCP Nurse Practitioner Family
DX: N39.0 Urinary tract infection, site not specified (principal); I25.10 Atherosclerotic heart disease of native coronary artery without angina pectoris; E78.5 Hyperlipidemia, unspecified; I11.0 Hypertensive heart disease with heart failure; I50.9 Heart failure, unspecified; G62.9 Polyneuropathy, unspecified; M06.9 Rheumatoid arthritis, unspecified; Z86.73 Personal history of transient ischemic attack (TIA), and cerebral infarction without residual deficits; Z95.0 Presence of cardiac pacemaker; Z96.653 Presence of artificial knee joint, bilateral; Z98.42 Cataract extraction status, left eye; Z98.41 Cataract extraction status, right eye; Z96.1 Presence of intraocular lens
CPT/HCPCS: 81003; 87086; 99213; G0463